=== PATIENT | male | born 1945 | race Caucasian/White ===

== ENCOUNTER → 2016-07-12 | Outpatient (CLI) | payer MEDICARE, OTHER ==
[~2016-07-12] VITALS: Ht 175.3 cm; Wt 81.6 kg
[~2016-07-12] MED LIST: COREG 12.5MG12.5 MG PO; GLUCOPHAGE 500500 MG PO; LASIX40 MG PO; SPIRONOLACTONE25 MG PO
== END ==
LOC: OPSV 09:39
DX: R18.8 Other ascites (principal)
CPT/HCPCS: 96365; P9047

== ENCOUNTER → 2016-08-09 | Outpatient (CLI) | payer MEDICARE, OTHER | LOC: OPSV 09:43 | DX: R18.8 Other ascites (principal) | CPT/HCPCS: 96365; P9047 ==

== ENCOUNTER → 2016-10-13 | Outpatient (CLI) | payer MEDICARE, OTHER ==
[~2016-10-13] VITALS: Ht 175.3 cm; Wt 81.6 kg
== END ==
LOC: OPSV 09:59
DX: R18.8 Other ascites (principal)
CPT/HCPCS: 96365; P9047